=== PATIENT | female | born 1965 | race Caucasian/White ===

== ENCOUNTER → 2016-12-11 | Outpatient (CLI) | payer BC | LOC: LABWHC1 10:37 | PROVIDERS: ATTEND Internal Medicine Endocrinology, Diabetes & Metabolism | DX: E03.8 Other specified hypothyroidism (principal) | CPT/HCPCS: 36415; 84443 ==

== ENCOUNTER → 2017-07-30 | Outpatient (CLI) | payer BC ==
--- NOTE | 2017-08-01 07:24 | MM ---
Reason for exam: screening (asymptomatic). Last mammogram was performed 4 years ago. History: Patient is postmenopausal. Family history of breast cancer in cousin and breast cancer in mother at age 63. Took hormonal contraceptives for 20 years. Physical Findings: A clinical breast exam by your physician is recommended on an annual basis and results should be correlated with mammographic findings. MG Screening Mammo w CAD Bilateral CC and MLO view(s) were taken. Prior study comparison: July 23, 2013, bilateral digital screening mammo w/CAD. December 28, 2009, left breast mammogram dig work up. The breast tissue is heterogeneously dense. This may lower the sensitivity of mammography. Finding: There are new round, grouped/clustered calcifications in the upper outer quadrant, anterior position. New finding since July 23, 2013 and December 28, 2009. ASSESSMENT: Incomplete: need additional imaging evaluation, BI-RAD 0 RECOMMENDATION: Special view mammogram of the left breast. [facility] will attempt to contact patient to return for supplemental views.
== END | disposition home or self-care (01) ==
LOC: RADMAMWWP 16:27
PROVIDERS: ATTEND Internal Medicine
DX: Z12.31 Encounter for screening mammogram for malignant neoplasm of breast (principal)
CPT/HCPCS: 77067

== ENCOUNTER → 2017-08-04 | Outpatient (CLI) | payer BC ==
--- NOTE | 2017-08-05 11:57 | MM ---
Reason for exam: additional evaluation requested from abnormal screening. Last mammogram was performed less than 1 month ago. History: Patient is postmenopausal. Family history of breast cancer in cousin and breast cancer in mother at age 63. Took hormonal contraceptives for 20 years. Physical Findings: Nurse did not find any significant physical abnormalities on exam. MG Work Up Mamm w CAD LT LM, CC with magnification, and LM with magnification view(s) were taken of the left breast. Prior study comparison: July 30, 2017, bilateral MG screening mammo w CAD. July 23, 2013, bilateral digital screening mammo w/CAD. The breast tissue is heterogeneously dense. This may lower the sensitivity of mammography. 3 o'clock grouped calcifications middle to posterior depth were present in 2013. Punctate and heterogeneous grouped calcifications 12:30 middle depth are increased. These results were verbally communicated with the patient and result sheet given to the patient on 08/04/17. ASSESSMENT: Suspicious, BI-RAD 4 RECOMMENDATION: Surgical consultation and stereotactic core biopsy of the left breast. Called Dr. Howard with mammographic findings and has scheduled an appointment for the patient for 08/11/17 at 9:[address] Castellanos. PRELIMINARY REPORT CALLED AND FAXED TO DR. CASTELLANOS ON 08/05/17. [facility]
== END | disposition home or self-care (01) ==
LOC: RADMAMWWP 14:44
PROVIDERS: ATTEND Internal Medicine
DX: R92.8 Other abnormal and inconclusive findings on diagnostic imaging of breast (principal)
CPT/HCPCS: 77065

== ENCOUNTER → 2017-08-15 | Day surgery (SDC) | payer BC ==
[2017-08-15 09:24] VITALS: RESP 16; BMI 26.2
--- NOTE | 2017-08-15 11:25 | MM ---
EXAMINATION TYPE: MG stereo VAD BX LT DATE OF EXAM: 08/15/2017 COMPARISON: Exams dating back to 07/23/2013 CLINICAL HISTORY: 5 mm group of calcifications within the left breast at the 12: 30 position, increasing from prior exams an wording stereotactic biopsy. TECHNIQUE: Stereotactic guided core biopsy of left breast. FINDINGS: The procedure of stereotactic guided core biopsy was explained to the patient. Benefits, alternatives, and risks were discussed. An informed consent was then obtained. Preprocedural timeout was performed The shortness pathway for biopsy was chosen to localize the 5 mm group of calcifications at the 12:30 position in the left breast. Shortness pathway was CC from above approach. Preprocedural images were utilized to localize the calcifications and calculated coordinates. 10 cc of lidocaine without epinephrine was administered at the skin surface and subcutaneously. The needle was advanced to the appropriate depth and prefire images were obtained after the administration of 6 cc of lidocaine with epinephrine. A vacuum assisted biopsy gun was used to obtain 9 core samples. The patient tolerated the procedure well without any immediate complication. The patient was kept in the radiology department for short stay after the procedure and then discharged home in stable condition. Targeted calcifications are identified in specimen mammogram. Post biopsy mammogram shows the T shaped biopsy marker to appear in satisfactory position relative to the targeted area of concern on the preprocedure images. IMPRESSION: SUCCESSFUL, UNCOMPLICATED STEREOTACTIC GUIDED CORE BIOPSY OF AN INCREASING 5 MM GROUP OF INTERMEDIATE SUSPICION CALCIFICATIONS AT THE 12:30 POSITION IN THE LEFT BREAST, FULL PATHOLOGY RESULTS TO FOLLOW. Pathology Results: Benign LEFT BREAST, NEEDLE CORE BIOPSIES: PROLIFERATIVE LESIONS WITHOUT ATYPIA ( MODERATE INTRADUCTAL HYPERPLASIA). COARSE INTRADUCTAL MINERALIZATIONS ARE IDENTIFIED. Recommendation Follow up mammogram of the left breast in 6 months. EULOGIOD
[2017-08-15 12:00] VITALS: BP 130/85; PULSE 79; TEMP 98
== END ==
LOC: RADMAMWWP 08:52
PROVIDERS: ATTEND Student in an Organized Health Care Education/Training Program
DX: R92.8 Other abnormal and inconclusive findings on diagnostic imaging of breast (principal); N60.92 Unspecified benign mammary dysplasia of left breast; Z88.0 Allergy status to penicillin; R92.1 Mammographic calcification found on diagnostic imaging of breast
CPT/HCPCS: 88305; 88342; 88341; 19081; A4648; J2001

== ENCOUNTER 2017-10-06 20:41 | Observation (INO) | payer BC ==
[2017-10-06] MEDS ORDERED: DIAZEPAM 5 MG/ML 2 ML INJ IVP STA (21:33)
[2017-10-06] MEDS ORDERED: MORPHINE SULFATE 4MG/4ML SYRG IVP STA ×2 (21:34→22:48)
[2017-10-06] MEDS ORDERED: ONDANSETRON 4 MG/2 ML VIAL IVP STA (21:35)
--- NOTE | 2017-10-06 21:40 | ED ---
General Adult HPI - General Chief complaint: Back Pain/Injury Stated complaint: back pain Time Seen by Provider: 10/06/17 20:50 Source: patient, family, RN notes reviewed Mode of arrival: ambulatory Limitations: no limitations - History of Present Illness Initial comments: This is a 52-year-old female presents emergency Department complaining of upper back pain and left-sided trapezius pain radiates into her neck and down towards her shoulder. Patient states taking a deep breath or moving or twisting of the thorax increases her pain. Patient denies any numbness weakness. Patient states when she takes a deep breath the pain does radiate around to her chest bilaterally Patient denies any shortness of breath however she states taking a deep breath hurts but she's not short of breath. Patient denies any palpitations. Patient denies any headache patient denies visual disturbances. Patient denies any injury or trauma or heavy lifting. Patient states she's had this before but not quite as severe as it is today. Patient states every day since last Friday her pain is gotten worse. Patient denies any recent fever or cough. Patient denies any abdominal pain. Patient denies any nausea vomiting diarrhea. Patient denies any diabetes hypertension high cholesterol patient denies smoking. - Related Data Home Medications Medication Instructions Recorded Confirmed Cetirizine HCl 10 mg PO DAILY 08/11/17 10/06/17 Levothyroxine Sodium [Synthroid] 50 mcg PO DAILY 08/11/17 10/06/17 Ibuprofen [Motrin Ib] 800 mg PO TID PRN 10/06/17 10/06/17 Allergies Allergy/AdvReac Type Severity Reaction Status Date / Time Penicillins Allergy Rash/Hives Verified 10/06/17 21:46 Review of Systems ROS Statement: Those systems with pertinent positive or pertinent negative responses have been documented in the HPI. ROS Other: All systems not noted in ROS Statement are negative. Past Medical History Past Medical History: Thyroid Disorder History of Any Multi-Drug Resistant Organisms: None Reported Additional Past Surgical History / Comment(s): TMJ surgery 1989 Past Anesthesia/Blood Transfusion Reactions: Postoperative Nausea & Vomiting ( PONV) Past Psychological History: No Psychological Hx Reported Smoking Status: Former smoker Past Alcohol Use History: Occasional Past Drug Use History: None Reported - Past Family History Mother Family Medical History: Cancer, Thyroid Disorder General Exam - General Exam Comments Initial Comments: GENERAL: Patient is well-developed and well-nourished. Patient is nontoxic and well- hydrated and is in no acute distress. ENT: Neck is soft and supple. No significant lymphadenopathy is noted. Oropharynx is clear. Moist mucous membranes. Neck has full range of motion without eliciting any pain. EYES: The sclera were anicteric and conjunctiva were pink and moist. Extraocular movements were intact and pupils were equal round and reactive to light. Eyelids were unremarkable. PULMONARY: Unlabored respirations. Good breath sounds bilaterally. No audible rales rhonchi or wheezing was noted. CARDIOVASCULAR: There is a regular rate and rhythm without any murmurs gallops or rubs. Patient had equal bilateral pulses ABDOMEN: Soft and nontender with normal bowel sounds. No palpable organomegaly was noted. There is no palpable pulsatile mass. SKIN: Skin is clear with no lesions or rashes and otherwise unremarkable. NEUROLOGIC: Patient is alert and oriented x3. Cranial nerves II through XII are grossly intact. Motor and sensory are also intact. Normal speech, volume and content. Symmetrical smile. MUSCULOSKELETAL: Normal extremities with adequate strength and full range of motion. No lower extremity swelling or edema. No calf tenderness. She has tenderness over left trapezius muscle on palpation. LYMPHATICS: No significant lymphadenopathy is noted PSYCHIATRIC: Normal psychiatric evaluation. Normal interpersonal interactions appears functionally intact in deals appropriately with others. No signs of depression. No signs of anxiety. Limitations: no limitations Course Vital Signs 10/06/17 10/06/17 10/06/17 20:44 21:29 22:44 Temperature 97.5 F L 98.4 F Pulse Rate 82 79 76 Respiratory 20 16 18 Rate Blood Pressure 189/84 161/82 161/82 O2 Sat by Pulse 96 97 98 Oximetry 10/06/17 10/07/17 10/07/17 23:42 02:08 03:05 Temperature 97.2 F L Pulse Rate 72 89 80 Respiratory 14 14 17 Rate Blood Pressure 147/77 104/63 145/76 O2 Sat by Pulse 99 97 99 Oximetry 10/07/17 10/07/17 03:58 04:00 Temperature 98.2 F Pulse Rate 84 Respiratory 16 16 Rate Blood Pressure 93/55 O2 Sat by Pulse 96 Oximetry Medical Decision Making - Medical Decision Making EKG shows normal sinus rhythm at 80 bpm MN interval is 170 QRS is 84 QT interval 36 QTC is 445. Patient's EKG shows no ST segment elevation or depression no T-wave abnormalities noted. CT of the aorta shows no abnormality of the aorta. 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 I will back into reevaluate the patient on a number of occasions and anytime the patient moved it seemed to increase her level of pain to her she stated it was unbearable and could not go home. - Lab Data Result diagrams: 10/07/17 00:50 10/07/17 00:50 Lab Results 10/07/17 10/07/17 10/07/17 Range/Units 00:50 00:50 00:50 WBC 16.2 H (3.8-10.6) k/uL RBC 4.13 (3.80-5.40) m/uL Hgb 12.2 (11.4-16.0) gm/dL Hct 35.9 (34.0-46.0) % MCV 86.9 (80.0-100.0) fL MCH 29.5 (25.0-35.0) pg MCHC 34.0 (31.0-37.0) g/dL RDW 13.4 (11.5-15.5) % Plt Count 286 (150-450) k/uL Neutrophils % 82 % Lymphocytes % 10 % Monocytes % 5 % Eosinophils % 1 % Basophils % 0 % Neutrophils # 13.3 H (1.3-7.7) k/uL Lymphocytes # 1.6 (1.0-4.8) k/uL Monocytes # 0.8 (0-1.0) k/uL Eosinophils # 0.1 (0-0.7) k/uL Basophils # 0.0 (0-0.2) k/uL D-Dimer 0.32 (<0.60) mg/L FEU Sodium 136 L (137-145) mmol/L Potassium 3.9 (3.5-5.1) mmol/L Chloride 103 (98-107) mmol/L Carbon Dioxide 19 L (22-30) mmol/L Anion Gap 14 mmol/L BUN 6 L (7-17) mg/dL Creatinine 0.50 L (0.52-1.04) mg/dL Est GFR (CKD-EPI)AfAm >90 (>60 ml/min/1.73 sqM) Est GFR (CKD-EPI)NonAf >90 (>60 ml/min/1.73 sqM) Glucose 126 H (74-99) mg/dL Calcium 9.2 (8.4-10.2) mg/dL Total Bilirubin 0.6 (0.2-1.3) mg/dL AST 19 (14-36) U/L ALT 19 (9-52) U/L Alkaline Phosphatase 95 (38-126) U/L Troponin I (0.000-0.034) ng/mL Total Protein 6.8 (6.3-8.2) g/dL Albumin 3.9 (3.5-5.0) g/dL 10/07/17 Range/Units 00:50 WBC (3.8-10.6) k/uL RBC (3.80-5.40) m/uL Hgb (11.4-16.0) gm/dL Hct (34.0-46.0) % MCV (80.0-100.0) fL MCH (25.0-35.0) pg MCHC (31.0-37.0) g/dL RDW (11.5-15.5) % Plt Count (150-450) k/uL Neutrophils % % Lymphocytes % % Monocytes % % Eosinophils % % Basophils % % Neutrophils # (1.3-7.7) k/uL Lymphocytes # (1.0-4.8) k/uL Monocytes # (0-1.0) k/uL Eosinophils # (0-0.7) k/uL Basophils # (0-0.2) k/uL D-Dimer (<0.60) mg/L FEU Sodium (137-145) mmol/L Potassium (3.5-5.1) mmol/L Chloride (98-107) mmol/L Carbon Dioxide (22-30) mmol/L Anion Gap mmol/L BUN (7-17) mg/dL Creatinine (0.52-1.04) mg/dL Est GFR (CKD-EPI)AfAm (>60 ml/min/1.73 sqM) Est GFR (CKD-EPI)NonAf (>60 ml/min/1.73 sqM) Glucose (74-99) mg/dL Calcium (8.4-10.2) mg/dL Total Bilirubin (0.2-1.3) mg/dL AST (14-36) U/L ALT (9-52) U/L Alkaline Phosphatase (38-126) U/L Troponin I 0.016 (0.000-0.034) ng/mL Total Protein (6.3-8.2) g/dL Albumin (3.5-5.0) g/dL Disposition Clinical Impression: Celiac artery stenosis, Intractable pain, Upper back pain Disposition: ADMITTED IP TO THIS [facility] Is patient prescribed a controlled substance at discharge?: No Time of Disposition: 02:56
--- NOTE | 2017-10-06 22:24 | XR ---
EXAMINATION TYPE: XR chest 2V DATE OF EXAM: 10/06/2017 COMPARISON: NONE HISTORY: Difficulty breathing TECHNIQUE: Frontal and lateral views of the chest are obtained. FINDINGS: There is no heart failure. There is minimal pleural reaction at the posterior lung bases. There is slight coarsening of interstitial markings in the lower lobes. There are chest leads. Heart size is normal. IMPRESSION: Pleural reaction and increased interstitial density at the lung bases. No pulmonary cons olidation or heart failure.
[2017-10-07 01:00] LABS: Basophils % (A) 0 %; Eosinophils # (A) 0.1 k/uL (0-0.7); Eosinophils % (A) 1 %; HCT 35.9 % (34.0-46.0); HGB 12.2 gm/dL (11.4-16.0); Lymphocytes # (A) 1.6 k/uL (1.0-4.8); Lymphocytes % (A) 10 %; MCH 29.5 pg (25.0-35.0); MCV 86.9 fL (80.0-100.0); Mean Platelet Volume 6.5; Monocytes # (A) 0.8 k/uL (0-1.0); Monocytes % (A) 5 %; Neutrophils # (A) 13.3 k/uL (1.3-7.7); Neutrophils % (A) 82 %; Platelet Count 286 k/uL (150-450); RBC 4.13 m/uL (3.80-5.40); RDW 13.4 % (11.5-15.5); WBC 16.2 k/uL (3.8-10.6)
[2017-10-07 01:12] LABS: ALT 19 U/L (9-52); AST 19 U/L (14-36); Albumin 3.9 g/dL (3.5-5.0); Alkaline Phosphatase 95 U/L (38-126); Anion Gap 14 mmol/L; Blood Urea Nitrogen 6 mg/dL (7-17); Calcium 9.2 mg/dL (8.4-10.2); Carbon Dioxide 19 mmol/L (22-30); Chloride 103 mmol/L (98-107); Glucose 126 mg/dL (74-99); Potassium 3.9 mmol/L (3.5-5.1); Sodium 136 mmol/L (137-145); Total Bilirubin 0.6 mg/dL (0.2-1.3); Total Protein 6.8 g/dL (6.3-8.2)
[2017-10-07] MEDS ORDERED: RX INFO: IV CONTRAST WAS GIVEN 1 EACH MISC MISCELLANE PRN (01:35)
[2017-10-07] MEDS ORDERED: MORPHINE SULFATE 4MG/4ML SYRG IVP STA (02:00)
--- NOTE | 2017-10-07 02:16 | CT ---
EXAMINATION TYPE: CT angio thoracic/abd aorta DATE OF EXAM: 10/07/2017 COMPARISON: NONE HISTORY: Abdominal pain CT DLP: mGycm. Automated Exposure Control for Dose Reduction was Utilized. CONTRAST: CT scan of the thorax, abdomen and pelvis is performed , patient injected with mL of . The contrast w as Isovue 100 mL. FINDINGS: There are 3-D post processed images. There is some mild patchy linear density in the right middle lobe and lingula left upper lobe. There is small bilateral pleural effusion. There is some mild infiltrate and atelectasis at the posterior l alice bases. The thoracic aorta is intact there is no sign of aneurysm or dissection. There is no pericardial effu eloisa. Heart is slightly enlarged. The abdominal aorta is intact there is mild atheromatous change in the abdominal aorta. There is malcolm ncy of the iliac arteries. There is patency of both renal arteries, the celiac artery and the superio r mesenteric artery. There is severe stenosis at the origin of the celiac artery of more than 75%. Kidneys have normal size and contour. There is no hydronephrosis. There is no retroperitoneal adenopa thy. There is no evidence of a splenic mass. I see no intestinal wall thickening. There is no sign of free air. I see no bony destructive process. CONCLUSION: Mild atherosclerotic vascular disease. Patchy bilateral pulmonary infiltrates and atelectasis as abov e. There appears to be more than 75% stenosis at the origin of the celiac artery. No evidence of aortic aneurysm or dissection. No evidence of pulmonary embolism.
[2017-10-07] MEDS ORDERED: KETOROLAC 60 MG/2 ML VIAL IVP STA (02:19)
[2017-10-07] MEDS ORDERED: SODIUM CHLORIDE 0.9% 1,000 ML IV ONE (02:56)
[2017-10-07] MEDS ORDERED: DIAZEPAM 5 MG/ML 2 ML INJ IVP PRN (02:59)
[2017-10-07] MEDS ORDERED: MORPHINE ORAL SOLN 10 MG/5 ML CUP PO PRN (02:59)
[2017-10-07] MEDS ORDERED: KETOROLAC 30 MG/ML 1 ML VIAL IVP SCH (06:00)
[2017-10-07 07:44] VITALS: BP 106/71; PULSE 81; RESP 18; TEMP 98.9
--- NOTE | 2017-10-07 21:45 | P.HPIM ---
History of Present Illness H&P Date: 10/07/17 Chief Complaint: Left neck pain, left shoulder pain, pleurisy cough This would serve both an H&P and discharge summary This is a 52-year-old pleasant lady patient of Dr. Howard, with history of hypothyroidism, admitted to the emergency room with complaints related to intractable pain in the left neck, left shoulder blade, radiating to the deltoid region, and accompanied by pleurisy, patient has had a cough for approximately 1 week duration, pain is worse with inspiration, patient does not have any cardiac history, or COPD,. She denies any nausea no vomiting, patient denies having any migraines or palpitations or lightheadedness, patient does not have any dyspepsia or abdominal pain with food ingestion, denies any focal neurologic deficits include numbness in the upper extremity or motor deficits. Patient is right-handed, and is a teacher. 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%, d-dimer is negative, troponin negative at 0.016 During my examination, patient has musculoskeletal pain along with pleurisy, in the location of her discomfort, this pain points to his C5 dermatomal level, without any rash pain has improved when seen, without any cardiac complaints, still has to cough without any significant shortness of breath no hemoptysis no pleurisy patient's improved and ready to be discharged to home today patient would also be treated for community acquired pneumonia, as well as cervical radicular radiculopathy, with Zithromax 5 day treatment and prednisone tapering dose, Review of Systems Constitutional: Reports as per HPI, Denies anorexia, Denies chills, Denies chronic headaches, Denies chronic pain, Denies daytime sleepiness, Denies fatigue, Denies fever, Denies lethargy, Denies malaise, Denies night sweats, Denies poor appetite, Denies sweats, Denies weakness, Denies weight gain, Denies weight loss Ears, nose, mouth and throat: Reports as per HPI, Denies ant. neck pain, Denies bleeding gums, Denies dental pain, Denies dysphagia, Denies epistaxis, Denies headache, Denies hoarseness, Denies mouth pain, Denies nasal congestion, Denies nasal discharge, Denies neck fullness/pressure, Denies neck lump, Denies nose pain, Denies odynophagia, Denies post-nasal drip, Denies sinus pain, Denies sinus pressure, Denies swelling in mouth, Denies swelling in throat, Denies sore throat, Denies vertigo, Denies voice changes Cardiovascular: Reports as per HPI Respiratory: Reports as per HPI, Reports cough, Reports pleurisy, Denies congestion, Denies cough with sputum, Denies dyspnea, Denies excessive sputum, Denies hemoptysis, Denies home oxygen, Denies pain, Denies pain on inspiration, Denies respiratory infections, Denies sleep apnea, Denies snoring, Denies wheezing Gastrointestinal: Reports as per HPI, Denies abdominal pain, Denies belching, Denies bloating, Denies BRBPR, Denies change in bowel habits, Denies coffee ground emesis, Denies constipation, Denies diarrhea, Denies dyspepsia, Denies early satiety, Denies excessive gas, Denies heartburn, Denies hematemesis, Denies hematochezia, Denies indigestion, Denies jaundice, Denies lactose intolerance, Denies loss of appetite, Denies melena, Denies nausea, Denies vomiting Genitourinary: Reports as per HPI, Denies abnormal vaginal bleeding, Denies decreased libido, Denies difficulty conceiving, Denies difficulty voiding, Denies dysmenorrhea, Denies dyspareunia, Denies dysuria, Denies flank pain, Denies genital sores, Denies hematuria, Denies hot flashes, Denies incomplete emptying, Denies kidney stones, Denies menorrhagia, Denies mixed incontinence, Denies nocturia, Denies pelvic pain, Denies post void dribbling, Denies , Denies prolapse symptoms, Denies stress incontinence, Denies urge incontinence , Denies urgency, Denies urinary frequency, Denies vaginal discharge, Denies vaginal dryness, Denies vaginal itching, Denies vaginal odor Menstruation: Reports as per HPI, Denies amenorrhea, Denies amenorrhea on BC, Denies currently menstrual, Denies cycle < 21 days, Denies cycle > 35 days, Denies cycle variable, Denies menses 1-7 days, Denies menses 8 or > days, Denies menses variable, Denies period heavy, Denies period light, Denies period normal, Denies period spotting, Denies post hysterectomy, Denies postmenopausal , Denies premenarcheal Musculoskeletal: Reports as per HPI, Reports shooting arm pain, Denies arm numbness/tingling, Denies atrophy, Denies fractures, Denies frequent falls, Denies gait dysfunction, Denies hot joints, Denies leg numbness/tingling, Denies limitation of motion, Denies loss of height, Denies low back pain, Denies morning stiffness, Denies muscle cramps, Denies muscle weakness, Denies myalgias, Denies neck pain, Denies neck stiffness, Denies prior amputations, Denies redness of joints, Denies shooting leg pain Integumentary: Reports as per HPI, Denies acne, Denies boils, Denies brittle nails, Denies change in hair/nails, Denies color changes, Denies darkening of skin, Denies depigmentation, Denies dryness, Denies foot/leg ulcers, Denies growths, Denies hirsutism, Denies lesions, Denies onychomycosis, Denies pruritus , Denies rash, Denies sores, Denies striae, Denies unusual bruising, Denies wounds Neurological: Reports as per HPI, Denies aphasia, Denies ataxia, Denies balance difficulties, Denies burning pain, Denies change in mentation, Denies change in smell/taste, Denies change in speech, Denies confusion, Denies convulsions, Denies double vision, Denies gait dysfunction, Denies head injury, Denies headaches, Denies hearing difficulties, Denies lack of coordination, Denies loss of vision, Denies memory loss, Denies migraines, Denies motor disturbance, Denies numbness, Denies paralysis, Denies paresthesias, Denies seizures, Denies sensory deficit, Denies spasticity, Denies syncope, Denies tic, Denies tingling , Denies transient paralysis, Denies tremors, Denies vertigo, Denies weakness, Denies visual changes Psychiatric: Reports as per HPI, Denies anhedonia, Denies anxiety, Denies anxiety attacks, Denies change in appetite, Denies change in libido, Denies change in sleep habits, Denies confusion, Denies depression, Denies difficulty concentrating, Denies disorientation, Denies hallucinations, Denies hopelessness , Denies hypersomnia, Denies insomnia, Denies irritability, Denies memory loss, Denies mood swings, Denies paranoia, Denies sadness/tearfulness, Denies sleep disturbances, Denies suicidal ideation Endocrine: Reports as per HPI, Denies cold intolerance, Denies deepening of the voice, Denies excessive sweating, Denies excessive thirst, Denies fatigue, Denies flushing, Denies heat intolerance, Denies high blood sugars, Denies increase in ring/shoe/hat size, Denies low blood sugars, Denies nocturia, Denies palpitations, Denies polydipsia, Denies polyphagia, Denies polyuria, Denies proptosis, Denies recent glucocorticoid use, Denies thyroid mass, Denies weight change Hematologic/Lymphatic: Reports as per HPI Allergic/Immunologic: Reports as per HPI, Denies allergic rhinitis, Denies anaphylaxis, Denies angioedema, Denies gluten intolerance, Denies persistent infections, Denies seasonal allergies, Denies urticaria, Denies wheezing Past Medical History Past Medical History: Osteoarthritis (OA), Thyroid Disorder History of Any Multi-Drug Resistant Organisms: None Reported Additional Past Surgical History / Comment(s): TMJ surgery 1989 Past Anesthesia/Blood Transfusion Reactions: Postoperative Nausea & Vomiting ( PONV) Past Psychological History: No Psychological Hx Reported Additional Psychological History / Comment(s): Patient is a teacher, right- handed Smoking Status: Current every day smoker (One half pack per day since 20 years of age) Past Alcohol Use History: Occasional Past Drug Use History: None Reported Additional History: Mother with breast cancer, hyperthyroidism, father with hypertension and diabetes mellitus, one brother healthy, 1 sister with pituitary gland tumor, thyroid disorder, one daughter with IBS migraine, and one son healthy - Past Family History Mother Family Medical History: Cancer, Thyroid Disorder Medications and Allergies Home Medications Medication Instructions Recorded Confirmed Type Cetirizine HCl 10 mg PO DAILY 08/11/17 10/06/17 History Levothyroxine Sodium [Synthroid] 50 mcg PO DAILY 08/11/17 10/06/17 History Ibuprofen [Motrin Ib] 800 mg PO TID PRN 10/06/17 10/06/17 History Acetaminophen-Codeine 300-30mg 1 tab PO Q6H PRN #20 tablet 10/07/17 Rx [Tylenol #3] Aspirin EC [Ecotrin Low Dose] 81 mg PO HS #1 tablet. 10/07/17 Rx Azithromycin [Zithromax] 500 mg PO DAILY #5 tab 10/07/17 Rx Methocarbamol [Robaxin-750] 750 mg PO Q8HR PRN #20 tablet 10/07/17 Rx predniSONE 40 mg PO DAILY #23 tab 10/07/17 Rx Allergies Allergy/AdvReac Type Severity Reaction Status Date / Time Penicillins Allergy Rash/Hives Verified 10/06/17 21:46 Physical Exam Vitals: Vital Signs Temp Pulse Pulse Resp BP BP Pulse Ox 10/07/17 07:00 98.9 F 81 18 106/71 98 10/07/17 04:57 94 L 10/07/17 04:54 98.5 F 79 16 93/46 88 L 10/07/17 04:00 16 10/07/17 03:58 98.2 F 84 16 93/55 96 10/07/17 03:05 80 17 145/76 99 10/07/17 02:08 97.2 F L 89 14 104/63 97 10/06/17 23:42 72 14 147/77 99 10/06/17 22:44 76 18 161/82 98 10/06/17 21:29 98.4 F 79 16 161/82 97 10/06/17 20:44 97.5 F L 82 20 189/84 96 Intake and Output 10/06/17 10/07/17 10/07/17 22:59 06:59 14:59 Intake Total 600 Balance 600 Intake: Intake, IV Titration 600 Amount Sodium Chloride 0.9% 1, 600 000 ml @ 75 mls/hr IV . [id number] ONE Rx#:[id number] Other: Weight 70.307 kg - Constitutional General appearance: cooperative, no acute distress - EENT Eyes: anicteric sclerae, EOMI, PERRLA, dentition normal, normal appearance ENT: NA/AT, normal oropharynx - Neck Neck: normal ROM - Respiratory Respiratory: bilateral: CTA, negative: diminished, dullness, rales - Cardiovascular Rhythm: regular Heart sounds: normal: S1, S2 Abnormal Heart Sounds: no systolic murmur, no diastolic murmur, no rub, no S3 Gallop, no S4 Gallop, no click, no other - Gastrointestinal General gastrointestinal: normal bowel sounds, soft - Integumentary Integumentary: decreased turgor, normal - Neurologic Neurologic: CNII-XII intact, focal deficits (None) - Musculoskeletal Musculoskeletal: gait normal, strength equal bilaterally - Psychiatric Psychiatric: A&O x's 3, appropriate affect, intact judgment & insight Results CBC & Chem 7: 10/07/17 00:50 10/07/17 00:50 Labs: Abnormal Lab Results - Last 24 Hours (Table) 10/07/17 10/07/17 Range/Units 00:50 00:50 WBC 16.2 H (3.8-10.6) k/uL Neutrophils # 13.3 H (1.3-7.7) k/uL Sodium 136 L (137-145) mmol/L Carbon Dioxide 19 L (22-30) mmol/L BUN 6 L (7-17) mg/dL Creatinine 0.50 L (0.52-1.04) mg/dL Glucose 126 H (74-99) mg/dL Laboratory Results WBC 16.2 k/uL (3.8-10.6) H 10/07/17 00:50 RBC 4.13 m/uL (3.80-5.40) 10/07/17 00:50 Hgb 12.2 gm/dL (11.4-16.0) 10/07/17 00:50 Hct 35.9 % (34.0-46.0) 10/07/17 00:50 MCV 86.9 fL (80.0-100.0) 10/07/17 00:50 MCH 29.5 pg (25.0-35.0) 10/07/17 00:50 MCHC 34.0 g/dL (31.0-37.0) 10/07/17 00:50 RDW 13.4 % (11.5-15.5) 10/07/17 00:50 Plt Count 286 k/uL (150-450) 10/07/17 00:50 Neutrophils % 82 % 10/07/17 00:50 Lymphocytes % 10 % 10/07/17 00:50 Monocytes % 5 % 10/07/17 00:50 Eosinophils % 1 % 10/07/17 00:50 Basophils % 0 % 10/07/17 00:50 Neutrophils # 13.3 k/uL (1.3-7.7) H 10/07/17 00:50 Lymphocytes # 1.6 k/uL (1.0-4.8) 10/07/17 00:50 Monocytes # 0.8 k/uL (0-1.0) 10/07/17 00:50 Eosinophils # 0.1 k/uL (0-0.7) 10/07/17 00:50 Basophils # 0.0 k/uL (0-0.2) 10/07/17 00:50 D-Dimer 0.32 mg/L FEU (<0.60) 10/07/17 00:50 Sodium 136 mmol/L (137-145) L 10/07/17 00:50 Potassium 3.9 mmol/L (3.5-5.1) 10/07/17 00:50 Chloride 103 mmol/L (98-107) 10/07/17 00:50 Carbon Dioxide 19 mmol/L (22-30) L 10/07/17 00:50 Anion Gap 14 mmol/L 10/07/17 00:50 BUN 6 mg/dL (7-17) L 10/07/17 00:50 Creatinine 0.50 mg/dL (0.52-1.04) L 10/07/17 00:50 Est GFR (CKD-EPI)AfAm >90 (>60 ml/min/1.73 sqM) 10/07/17 00:50 Est GFR (CKD-EPI)NonAf >90 (>60 ml/min/1.73 sqM) 10/07/17 00:50 Glucose 126 mg/dL (74-99) H 10/07/17 00:50 Calcium 9.2 mg/dL (8.4-10.2) 10/07/17 00:50 Total Bilirubin 0.6 mg/dL (0.2-1.3) 10/07/17 00:50 AST 19 U/L (14-36) 10/07/17 00:50 ALT 19 U/L (9-52) 10/07/17 00:50 Alkaline Phosphatase 95 U/L (38-126) 10/07/17 00:50 Troponin I 0.016 ng/mL (0.000-0.034) 10/07/17 00:50 Total Protein 6.8 g/dL (6.3-8.2) 10/07/17 00:50 Albumin 3.9 g/dL (3.5-5.0) 10/07/17 00:50 Thrombosis Risk Factor Assmnt - DVT/VTE Prophylaxis DVT/VTE Prophylaxis: Low risk, early ambulation encouraged - Choose All That Apply Any of the Below Risk Factors Present?: Yes Each Factor Represents 1 point: Age 41-60 years Other Risk Factors: No Other congenital or acquired thrombophilia - If yes, enter type in comment: No Thrombosis Risk Factor Assessment Total Risk Factor Score: 1 Thrombosis Risk Factor Assessment Level: Low Risk Assessment and Plan Plan: 1. Intractable neuralgia C5 cervical radical radiculopathy on presentation, without any motor myelopathy, left side symptoms on the right handed individual. Patient with this started on oral tapering prednisone, a muscle relaxant Robaxin, heat compresses, patient can have physical therapy as an outpatient along with further imaging including an MRI of the cervical region should the patient not respond and be symptomatic, patient also was advised to avoid high pillows bulky pillows for sleep.. Tylenol 3 informed informed decision making counseled regarding the ill effects of narcotics, 20 tablets only 2. Bilateral pneumonia, community acquired, patient was started on Zithromax 500 mg daily, 3. pleurisy without reactive airway symptoms, smoker, patient was started on tapering prednisone, starting at 50 mg daily patient was counseled not to take Motrin while on prednisone, X 4. Hypothyroidism on levothyroxine no changes made next 5. Current tobacco use and dependency patient was counseled regarding the effects of chronic tobacco use and its irreversible side effects Discharge condition stable and improved Follow-up Dr. Howard in 1-2 days for cervical neuralgia symptoms as well as smoking cessation and follow-up pneumonia Discharge Medication List Cetirizine HCl 10 mg PO DAILY 08/11/17 [History] Levothyroxine Sodium [Synthroid] 50 mcg PO DAILY 08/11/17 [History] Ibuprofen [Motrin Ib] 800 mg PO TID PRN 10/06/17 [History] Acetaminophen-Codeine 300-30mg [Tylenol #3] 1 tab PO Q6H PRN #20 tablet [Rx] Aspirin EC [Ecotrin Low Dose] 81 mg PO HS #1 tablet. 10/07/17 [Rx] Azithromycin [Zithromax] 500 mg PO DAILY #5 tab 10/07/17 [Rx] Methocarbamol [Robaxin-750] 750 mg PO Q8HR PRN #20 tablet 10/07/17 [Rx] predniSONE 40 mg PO DAILY #23 tab 10/07/17 [Rx]
== END 2017-10-07 12:11 | disposition home or self-care (01) ==
LOC: EC 20:41 → INTOOBSV 10-07 02:56 → 4MS4W 10-07 02:56
PROVIDERS: ADMIT Family Medicine; ATTEND Family Medicine
DX: M79.2 Neuralgia and neuritis, unspecified (principal); J18.9 Pneumonia, unspecified organism; R09.1 Pleurisy; F17.210 Nicotine dependence, cigarettes, uncomplicated; E03.9 Hypothyroidism, unspecified; Z88.0 Allergy status to penicillin; I77.4 Celiac artery compression syndrome; M19.90 Unspecified osteoarthritis, unspecified site; Z83.3 Family history of diabetes mellitus; Z82.49 Family history of ischemic heart disease and other diseases of the circulatory system; Z80.3 Family history of malignant neoplasm of breast; Z79.890 Hormone replacement therapy; Z79.899 Other long term (current) drug therapy; Z79.82 Long term (current) use of aspirin; Z79.52 Long term (current) use of systemic steroids
CPT/HCPCS: 99285; 96374 ×2; 96375 ×5; 96376 ×5; 36415; 93005; 85379; 80053; 84484; 85025; 71046; 75635; 71275; G0378; J3360; J2405; J1885 ×2; Q9967; J2270 ×2

== ENCOUNTER → 2018-02-19 | Outpatient (CLI) | payer BC ==
--- NOTE | 2018-02-19 12:05 | MM ---
Reason for exam: follow-up at short interval from prior study. Last mammogram was performed 7 months ago. History: Patient is postmenopausal. Family history of breast cancer in cousin and breast cancer in mother at age 63. Benign MG stereo VAD BX LT of the left breast, August 15, 2017. Took hormonal contraceptives for 20 years. Physical Findings: Nurse did not find any significant physical abnormalities on exam. MG 3D Diag Mammo W/Cad LT CC and MLO view(s) were taken of the left breast. Prior study comparison: August 04, 2017, left breast MG work up mamm w CAD LT. July 30, 2017, bilateral MG screening mammo w CAD. The breast tissue is heterogeneously dense. This may lower the sensitivity of mammography. Stable scattered calcifications. Previous mammotome biopsy in the left breast. No significant new findings when compared with previous films. These results were verbally communicated with the patient and result sheet given to the patient on 02/19/18. ASSESSMENT: Benign, BI-RAD 2 RECOMMENDATION: Return to routine screening mammogram schedule for both breasts. Back on schedule.
== END | disposition home or self-care (01) ==
LOC: RADMAMWWP 10:49
PROVIDERS: ATTEND Student in an Organized Health Care Education/Training Program
DX: R92.8 Other abnormal and inconclusive findings on diagnostic imaging of breast (principal)
CPT/HCPCS: 77061; 77065

== ENCOUNTER → 2018-10-19 | Outpatient (CLI) | payer BC ==
--- NOTE | 2018-10-21 11:50 | MM ---
Reason for exam: screening (asymptomatic). Last mammogram was performed 8 months ago. History: Patient is postmenopausal. Family history of breast cancer in maternal cousin at age 45 and breast cancer in mother at age 63. Benign MG stereo VAD BX LT of the left breast, August 15, 2017. Took hormonal contraceptives for 20 years. Physical Findings: A clinical breast exam by your physician is recommended on an annual basis and results should be correlated with mammographic findings. MG 3D Screening Mammo W/Cad Bilateral CC and MLO view(s) were taken. Prior study comparison: February 19, 2018, left breast MG 3d diag mammo w/cad LT. August 04, 2017, left breast MG work up mamm w CAD LT. The breast tissue is heterogeneously dense. This may lower the sensitivity of mammography. Previous mammotome biopsy in the left breast. Stable regional calcifications on the left. No significant changes when compared with prior studies. ASSESSMENT: Benign, BI-RAD 2 RECOMMENDATION: Routine screening mammogram of both breasts in 1 year.
== END | disposition home or self-care (01) ==
LOC: RADMAMWWP 07:09
PROVIDERS: ATTEND Internal Medicine
DX: Z12.31 Encounter for screening mammogram for malignant neoplasm of breast (principal)
CPT/HCPCS: 77063; 77067